=== PATIENT | male | born 1975 | race Caucasian/White ===

== ENCOUNTER 2021-07-07 16:30 | Emergency (ER) | payer BC ==
[2021-07-07] MEDS ORDERED: Lidocaine 1% 20 ML MDV INJECT ONE (16:51)
[2021-07-07] MEDS ORDERED: Amoxicillin/Clavulanate K 875-125 MG Tab PO ONE (17:45)
== END 2021-07-07 18:35 | disposition home or self-care (01) ==
LOC: KA.ED 16:30
DX: S62.634B Displaced fracture of distal phalanx of right ring finger, initial encounter for open fracture (principal); S61.212A Laceration without foreign body of right middle finger without damage to nail, initial encounter; S61.310A Laceration without foreign body of right index finger with damage to nail, initial encounter; Z79.899 Other long term (current) drug therapy; W23.1XXA Caught, crushed, jammed, or pinched between stationary objects, initial encounter
CPT/HCPCS: 12002; 73130; 99283; A9270; 29130